=== PATIENT | male | born 2000 | race Hispanic/Latino ===

== ENCOUNTER 2023-02-20 00:24 | Emergency (ER) | payer OTHER ==
[~2023-02-20] VITALS: Ht 170.2 cm; Wt 90.9 kg
[2023-02-20] MEDS ORDERED: MIDAZOLAM INJ 2MG/2ML VIAL IV STA (02:01)
[2023-02-20] MEDS ORDERED: fentaNYL 100 MCG/2 ML INJECTION IV ONE ×2 (02:05)
[2023-02-20] MEDS ORDERED: MIDAZOLAM INJ 2MG/2ML VIAL IV ONE (02:05)
[2023-02-20 05:01] VITALS: BP 120/64; TEMP 98.8; O2SAT 100
== END 2023-02-20 05:05 | disposition home or self-care (01) ==
LOC: M ED 00:24 → EDBD 00:24 → M ED 05:05
DX: S43.015A Anterior dislocation of left humerus, initial encounter (principal); S00.03XA Contusion of scalp, initial encounter; H02.846 Edema of left eye, unspecified eyelid; Y92.410 Unspecified street and highway as the place of occurrence of the external cause; Y04.0XXA Assault by unarmed brawl or fight, initial encounter
CPT/HCPCS: 23650; 70450; 70486; 71046; 72125; 73020; 73030; 73080; 96374; 96375; 99285; J2250; J3010

== ENCOUNTER → 2023-02-21 | Outpatient (CLI) | payer OTHER | LOC: M SOG 15:08 | PROVIDERS: ATTEND Orthopaedic Surgery | DX: M25.512 Pain in left shoulder (principal) ==

== ENCOUNTER 2023-03-26 18:52 | Inpatient (IN) | payer OTHER ==
[~2023-03-26] VITALS: Ht 170.2 cm; Wt 92.4 kg
[2023-03-26 20:20] LABS: HEMATOCRIT 43.2 % (42.0-52.0); HEMOGLOBIN 14.8 g/dl (13.5-17.5); MEAN CORPUSCULAR HEMOGLOBIN 28.5 pg (27.0-33.0); MEAN CORPUSCULAR HGB CONC 34.3 g/dl (32.0-36.5); MEAN CORPUSCULAR VOLUME 83.2 fl (80.0-96.0); PLATELET COUNT, AUTOMATED 349 10^3/uL (150-450); RED BLOOD COUNT 5.19 10^6/uL (4.30-6.10); WHITE BLOOD COUNT 9.2 10^3/uL (4.0-10.0)
[2023-03-26 20:43] LABS: AMPHETAMINES LEVEL URINE NEGATIVE (NEGATIVE); BARBITURATES URINE NEGATIVE (NEGATIVE); BENZODIAZEPINES URINE NEGATIVE (NEGATIVE); CANNABINOIDS URINE NEGATIVE (NEGATIVE); COCAINE METABOLITE URINE NEGATIVE (NEGATIVE); METHADONE URINE NEGATIVE (NEGATIVE); OPIATES URINE NEGATIVE (NEGATIVE); PHENCYCLIDINE URINE NEGATIVE (NEGATIVE)
[2023-03-26 20:45] LABS: ETHYL ALCOHOL (ETHANOL) 0.004 % (0.000-0.010)
[2023-03-26 20:47] LABS: ALBUMIN 4.2 G/DL (3.2-5.2); ALKALINE PHOSPHATASE 68 U/L (46-116); ALT/SGPT 19 U/L (7.0-40); AST/SGOT 16 U/L (<34); BILIRUBIN,DIRECT 0.3 MG/DL (<0.4); BILIRUBIN,TOTAL 1.1 MG/DL (0.3-1.2); BLOOD UREA NITROGEN 11 MG/DL (9-23); CARBON DIOXIDE LEVEL 23 MMOL/L (20-31); CHLORIDE LEVEL 106 MMOL/L (98-107); CREATININE FOR GFR 0.77 MG/DL (0.70-1.30); GLOMERULAR FILTRATION RATE > 60.0 (>60); GLUCOSE, FASTING 110 MG/DL (60-100); POTASSIUM SERUM 3.8 MMOL/L (3.5-5.1); SALICYLATE LEVEL < 3.0 MG/DL (<30); SODIUM LEVEL 141 MMOL/L (136-145); TOTAL PROTEIN 8.1 G/DL (5.7-8.2)
[2023-03-26 20:50] LABS: THYROID STIMULATING HORMONE 0.724 uIU/ML (0.55-4.78)
[2023-03-26] MEDS ORDERED: IBUPROFEN 400MG TAB PO PRN (21:55)
[2023-03-26] MEDS ORDERED: MOM 30ML SUSPENSION UDC PO PRN (21:55)
[2023-03-26] MEDS ORDERED: diphenhydrAMINE 25MG CAP PO PRN (21:55)
[2023-03-26] MEDS ORDERED: ACETAMINOPHEN TAB 650MG DOSE (2X325MG) PO PRN (21:55)
[2023-03-26] MEDS ORDERED: MAALOX 30 ML SUSP *UDC PO PRN (21:55)
[2023-03-26] MEDS ORDERED: HOME MED LIST COMPLETE! XX SCH (22:25)
[2023-03-27] MEDS: traZODone 50 MG TAB PO PRN ×2 (00:39→22:06)
[2023-03-27 01:05] VITALS: BP 112/70; TEMP 97.5; O2SAT 99
[2023-03-27 06:48] VITALS: BP 130/57; TEMP 98.4; O2SAT 96
[2023-03-27 16:28] VITALS: BP 120/67; TEMP 98.9; O2SAT 98
[2023-03-28 06:38] VITALS: BP 116/59; TEMP 98.9; O2SAT 98
[2023-03-28] MEDS ORDERED: TRAZ-252 PO (09:41)
== END 2023-03-28 11:40 | disposition home or self-care (01) | DRG 882 ==
LOC: M ED 18:52 → M ED INP 21:54 → M PSY 03-27 00:24
PROVIDERS: ADMIT Student in an Organized Health Care Education/Training Program; ATTEND Student in an Organized Health Care Education/Training Program
DX: F43.25 Adjustment disorder with mixed disturbance of emotions and conduct (principal)

== ENCOUNTER 2023-05-28 20:51 | Emergency (ER) | payer OTHER ==
[~2023-05-28 20:51] MED LIST: TRAZ-252 PO
[2023-05-28 21:51] LABS: RSV AMPLIFICATION NEGATIVE (NEGATIVE)
[2023-05-29] MEDS ORDERED: NS 1,000 ML IV ONE (01:30)
[2023-05-29 01:39] LABS: BASO # 0.1 10^3/uL (0.0-0.2); BASO % 0.6 % (0.0-1.0); EOS # 0.4 10^3/uL (0.0-0.5); HEMATOCRIT 40.3 % (42.0-52.0); HEMOGLOBIN 13.8 g/dl (13.5-17.5); LYMPH # 2.9 10^3/uL (1.5-5.0); LYMPH % 35.3 % (24.0-44.0); MEAN CORPUSCULAR HEMOGLOBIN 29.5 pg (27.0-33.0); MEAN CORPUSCULAR HGB CONC 34.2 g/dl (32.0-36.5); MEAN CORPUSCULAR VOLUME 86.1 fl (80.0-96.0); MONO # 0.9 10^3/uL (0.0-0.8); MONO % 11.1 % (2.0-8.0); NEUTROPHILS # 3.9 10^3/uL (1.5-8.5); NEUTROPHILS % 47.8 % (36.0-66.0); PLATELET COUNT, AUTOMATED 306 10^3/uL (150-450); RED BLOOD COUNT 4.68 10^6/uL (4.30-6.10); WHITE BLOOD COUNT 8.2 10^3/uL (4.0-10.0)
[2023-05-29 01:59] LABS: LIPASE 27 U/L (12-53)
[2023-05-29 02:01] LABS: ALBUMIN 3.7 G/DL (3.2-5.2); ALKALINE PHOSPHATASE 62 U/L (46-116); ALT/SGPT 15 U/L (7.0-40); AST/SGOT 27 U/L (<34); BILIRUBIN,DIRECT 0.1 MG/DL (<0.4); BILIRUBIN,TOTAL 0.6 MG/DL (0.3-1.2); BLOOD UREA NITROGEN 21 MG/DL (9-23); CALCIUM LEVEL 9.1 MG/DL (8.5-10.1); CARBON DIOXIDE LEVEL 25 MMOL/L (20-31); CHLORIDE LEVEL 109 MMOL/L (98-107); CREATININE FOR GFR 0.87 MG/DL (0.70-1.30); GLOMERULAR FILTRATION RATE > 60.0 (>60); GLUCOSE, FASTING 106 MG/DL (60-100); POTASSIUM SERUM 4.6 MMOL/L (3.5-5.1); SODIUM LEVEL 142 MMOL/L (136-145)
[2023-05-29] MEDS ORDERED: PROM25TA12 PO (06:19)
[2023-05-29] MEDS ORDERED: ONDANSETRON 4MG 2ML VIAL IV ONE (06:20)
[2023-05-29 06:36] VITALS: BP 118/67; TEMP 98.3; O2SAT 98
== END 2023-05-29 06:42 | disposition home or self-care (01) ==
LOC: M ED 20:51
DX: B34.8 Other viral infections of unspecified site (principal); R11.2 Nausea with vomiting, unspecified; R19.7 Diarrhea, unspecified; F41.9 Anxiety disorder, unspecified; Z79.83 Long term (current) use of bisphosphonates; Z79.1 Long term (current) use of non-steroidal anti-inflammatories (NSAID)
CPT/HCPCS: 71045; 80048; 80076; 83690; 85025; 87631; 93041; 96361; 96374; 99284; J2405

== ENCOUNTER 2023-11-23 17:34 | Emergency (ER) | payer OTHER ==
[~2023-11-23] VITALS: Ht 170.2 cm; Wt 90.7 kg
[~2023-11-23 17:34] MED LIST changes: +PROM25TA12 PO
[2023-11-23] MEDS: MORPHINE 4 MG/ML 1ML VIAL IV ONE (20:22)
[2023-11-23] MEDS: ONDANSETRON 4MG 2ML VIAL IV ONE (20:22)
[2023-11-23] MEDS: KETOROLAC 30 MG/ML 1ML VIAL IV ONE (20:22)
[2023-11-23] MEDS: propofoL 200 MG/20 ML VIAL IV.PROC PRN (21:23)
[2023-11-23] MEDS: NS 1,000 ML IV SCH (21:23)
[2023-11-23 21:30] VITALS: TEMP 98
[2023-11-23 23:10] VITALS: BP 111/61; O2SAT 100
== END 2023-11-23 23:38 | disposition home or self-care (01) ==
LOC: EDBD 17:34 → M ED 17:34
DX: S43.015A Anterior dislocation of left humerus, initial encounter (principal); Z79.1 Long term (current) use of non-steroidal anti-inflammatories (NSAID); Z79.899 Other long term (current) drug therapy; Y92.9 Unspecified place or not applicable; Y93.B3 Activity, free weights; Y99.9 Unspecified external cause status
CPT/HCPCS: 23655; 73020; 73030; 93041; 94760; 96374; 99152; 99285; J1885; J2405

== ENCOUNTER → 2024-02-20 | Outpatient (CLI) | payer OTHER ==
[~2024-02-20] MED LIST changes: +ISOVUE-300 61% 100ML VIAL As Ordered ONE; +LIDOCAINE 1% MDV 20ML VIAL As Ordered ONE; +PROHANCE 279.3MG/ML 5ML VIAL As Ordered ONE
== END ==
LOC: M RAD 12:45
PROVIDERS: ATTEND Orthopaedic Surgery
DX: M25.512 Pain in left shoulder (principal); S43.402A Unspecified sprain of left shoulder joint, initial encounter; X58.XXXA Exposure to other specified factors, initial encounter; Y92.9 Unspecified place or not applicable
CPT/HCPCS: 23350; 73223; 77002; A9576; Q9967

== ENCOUNTER 2024-05-22 18:18 | Emergency (ER) | payer OTHER ==
[~2024-05-22] VITALS: Ht 170.2 cm; Wt 91.5 kg
[~2024-05-22 18:18] MED LIST changes: -ISOVUE-300 61% 100ML VIAL As Ordered ONE; -LIDOCAINE 1% MDV 20ML VIAL As Ordered ONE; -PROHANCE 279.3MG/ML 5ML VIAL As Ordered ONE
[2024-05-22 18:20] VITALS: BP 126/66; TEMP 98.3; O2SAT 98
[2024-05-22] MEDS: PENICILLIN V POTASSIUM 500 MG TAB PO ONE (20:25)
[2024-05-22] MEDS ORDERED: PENI500T PO (20:27)
[2024-05-22] MEDS: KETOROLAC 60MG 2ML VIAL IM ONE (20:30)
== END 2024-05-22 20:53 | disposition home or self-care (01) ==
LOC: M ED 18:18
DX: K04.7 Periapical abscess without sinus (principal); Z88.0 Allergy status to penicillin
CPT/HCPCS: 96372; 99283; J1885

== ENCOUNTER 2024-05-28 19:37 | Emergency (ER) | payer OTHER ==
[~2024-05-28] VITALS: Ht 172.7 cm; Wt 89.6 kg
[~2024-05-28 19:37] MED LIST changes: +PENI500T PO
[2024-05-28] MEDS: FAMOTIDINE 20MG/2ML VIAL IVP ONE (21:38)
[2024-05-28] MEDS: KETOROLAC 30 MG/ML 1ML VIAL IV ONE (21:38)
[2024-05-28 21:41] LABS: BASO # 0.1 10^3/uL (0.0-0.2); BASO % 0.5 % (0.0-1.0); EOS # 0.3 10^3/uL (0.0-0.5); EOS % 2.9 % (0.0-3.0); HEMATOCRIT 42.7 % (42.0-52.0); HEMOGLOBIN 14.7 g/dl (13.5-17.5); LYMPH # 2.8 10^3/uL (1.5-5.0); LYMPH % 23.9 % (24.0-44.0); MEAN CORPUSCULAR HEMOGLOBIN 28.8 pg (27.0-33.0); MEAN CORPUSCULAR HGB CONC 34.4 g/dl (32.0-36.5); MEAN CORPUSCULAR VOLUME 83.6 fl (80.0-96.0); MONO # 1.2 10^3/uL (0.0-0.8); MONO % 10.1 % (2.0-8.0); NEUTROPHILS # 7.2 10^3/uL (1.5-8.5); NEUTROPHILS % 62.4 % (36.0-66.0); PLATELET COUNT, AUTOMATED 342 10^3/uL (150-450); RED BLOOD COUNT 5.11 10^6/uL (4.30-6.10); WHITE BLOOD COUNT 11.6 10^3/uL (4.0-10.0)
[2024-05-28 21:59] LABS: CK-MB VALUE MASS < 1.0 NG/ML (<3.6)
[2024-05-28 22:08] LABS: BLOOD UREA NITROGEN 16 MG/DL (9-23); CALCIUM LEVEL 9.6 MG/DL (8.5-10.1); CARBON DIOXIDE LEVEL 24 MMOL/L (20-31); CHLORIDE LEVEL 108 MMOL/L (98-107); CREATININE FOR GFR 0.91 MG/DL (0.70-1.30); GLOMERULAR FILTRATION RATE > 60.0 (>60); GLUCOSE, FASTING 85 MG/DL (60-100); SODIUM LEVEL 144 MMOL/L (136-145)
[2024-05-28 22:09] LABS: CPK CREATINE PHOSPHOKINASE 116 U/L (46-171); MB/CK RELATIVE INDEX 0.86 (< OR =4)
[2024-05-28] MEDS: SUCRALFATE SUSP 1GM/10ML UD PO ONE (22:32)
[2024-05-28] MEDS: MAALOX 30 ML SUSP *UDC PO ONE (22:32)
[2024-05-28] MEDS: LIDOCAINE VISCOUS 2% SOLN 15ML UDC PO STA (22:33)
[2024-05-28] MEDS ORDERED: PEPC1TAB5 PO (23:41)
[2024-05-29] VITALS: BP 114/71; TEMP 97.7; O2SAT 96
[2024-05-29] MEDS: KETOROLAC 30 MG/ML 1ML VIAL IV ONE
[2024-05-29] MEDS: NORCO 5/325MG TABLET (HOME DOSE PACK) PO ONE (00:01)
== END 2024-05-29 00:09 | disposition home or self-care (01) ==
LOC: M ED 19:37
DX: R07.9 Chest pain, unspecified (principal); K21.9 Gastro-esophageal reflux disease without esophagitis; Z79.899 Other long term (current) drug therapy
CPT/HCPCS: 71045; 80048; 82550; 82553; 83735; 84484; 85025; 87486; 87581; 87633; 87798; 93005; 96374; 96375; 99284; J1885; S0028

== ENCOUNTER → 2024-06-06 | Outpatient (CLI) | payer OTHER ==
[~2024-06-06] MED LIST changes: +PEPC1TAB5 PO
== END ==
LOC: M SOG 07:51
PROVIDERS: ATTEND Orthopaedic Surgery
DX: M25.512 Pain in left shoulder (principal)

== ENCOUNTER 2024-06-08 08:53 | Emergency (ER) | payer OTHER ==
[~2024-06-08] VITALS: Ht 172.7 cm; Wt 89.6 kg
[2024-06-08] MEDS ORDERED: TRAZ-252 PO (09:02)
[2024-06-08 12:10] VITALS: BP 116/78; TEMP 98; O2SAT 99
== END 2024-06-08 12:11 | disposition home or self-care (01) ==
LOC: M ED 08:53
DX: J06.9 Acute upper respiratory infection, unspecified (principal)

== ENCOUNTER 2024-08-04 19:47 | Emergency (ER) | payer OTHER ==
[~2024-08-04] VITALS: Ht 172.7 cm; Wt 90.5 kg
[2024-08-04 19:49] VITALS: TEMP 98.5
[2024-08-04] MEDS: fentaNYL 100 MCG/2 ML INJECTION IV ONE (22:27)
[2024-08-04] MEDS: MIDAZOLAM INJ 2MG/2ML VIAL IV ONE (22:28)
[2024-08-04 23:15] VITALS: O2SAT 98
[2024-08-04 23:24] VITALS: BP 113/68
== END 2024-08-04 23:39 | disposition home or self-care (01) ==
LOC: M ED 19:47
DX: S43.012A Anterior subluxation of left humerus, initial encounter (principal); X50.0XXA Overexertion from strenuous movement or load, initial encounter; Y92.39 Other specified sports and athletic area as the place of occurrence of the external cause; Y93.B9 Activity, other involving muscle strengthening exercises; Y99.9 Unspecified external cause status; Z79.899 Other long term (current) drug therapy
CPT/HCPCS: 73020; 73030; 96374; 96375; 99285; J2250; J3010

== ENCOUNTER → 2024-09-04 | Outpatient (CLI) | payer OTHER | LOC: M PLARAD 14:23 | PROVIDERS: ATTEND Orthopaedic Surgery | DX: S43.015D Anterior dislocation of left humerus, subsequent encounter (principal) ==

== ENCOUNTER 2024-11-25 20:29 | Emergency (ER) | payer OTHER ==
[~2024-11-25] VITALS: Ht 170.2 cm; Wt 94.2 kg
[2024-11-25 20:33] VITALS: BP 122/72; TEMP 98.2; O2SAT 98
== END 2024-11-25 21:32 | disposition home or self-care (01) ==
LOC: M ED 20:29
DX: S43.005A Unspecified dislocation of left shoulder joint, initial encounter (principal); X50.0XXA Overexertion from strenuous movement or load, initial encounter; Y92.318 Other athletic court as the place of occurrence of the external cause; Y93.B3 Activity, free weights; Y99.9 Unspecified external cause status; Z79.899 Other long term (current) drug therapy